=== PATIENT | female | born 1950 | race Caucasian/White ===

== ENCOUNTER 2017-04-05 17:38 | Emergency (ER) | payer OTHER, MEDICAID ==
[~2017-04-05 17:38] MED LIST: CIPRO500 MG PO; COLACE100 MG PO; FLA500 PO; LAC PO; NOR10T PO
[2017-04-05 21:12] VITALS: BP 112/48
== END 2017-04-05 21:08 | disposition home or self-care (01) ==
LOC: ED 17:38
DX: K59.00 Constipation, unspecified (principal); I10 Essential (primary) hypertension; Z88.0 Allergy status to penicillin
CPT/HCPCS: Q0092

== ENCOUNTER 2018-02-03 19:36 | Emergency (ER) | payer OTHER, MEDICAID ==
[~2018-02-03] VITALS: Ht 157.5 cm; Wt 79.4 kg
[2018-02-03 19:42] VITALS: Ht 157.5 cm; Wt 79.4 kg
[2018-02-03 20:47] LABS: BASOPHIL % 0.8 % (0-2); PLATELET COUNT 227 x10^3mcL (130-400); RED CELL DISTRIBUTION WIDTH 13.7 % (11.5-14.5)
[2018-02-03 20:55] LABS: CALCIUM 8.4 mg/dL (8.5-10.1); CARBON DIOXIDE 26.3 mmol/L (21-32); POTASSIUM SERUM 3.4 mmol/L (3.5-5.1)
[2018-02-03 21:00] LABS: ALBUMIN 3.5 g/dL (3.4-5.0); BILIRUBIN TOTAL 0.26 mg/dL (0.20-1.00); TOTAL PROTEIN, SERUM 7.1 g/dL (6.4-8.2)
[2018-02-03 21:11] LABS: FREE T4 0.84 ng/dL (0.76-1.46); FREE THYROXINE INDEX 2.5 ug/dL (1.4-4.5); T4(THYROXINE) 7.5 ug/dL (4.7-13.3)
[2018-02-03 21:21] LABS: T3 TOTAL 1.08 ng/mL
[2018-02-03 21:49] VITALS: BP 135/78
== END 2018-02-03 21:49 | disposition home or self-care (01) ==
LOC: ED 19:36
PROVIDERS: Specialist
DX: J20.9 Acute bronchitis, unspecified (principal); I10 Essential (primary) hypertension; E78.00 Pure hypercholesterolemia, unspecified; F41.9 Anxiety disorder, unspecified; E03.9 Hypothyroidism, unspecified; R63.0 Anorexia; Z88.0 Allergy status to penicillin
CPT/HCPCS: 36415; 83880; 84439; J7613; J7644

== ENCOUNTER 2018-05-08 19:39 | Emergency (ER) | payer OTHER, MEDICAID ==
[~2018-05-08] VITALS: Ht 157.5 cm; Wt 75.7 kg
[2018-05-08 19:47] VITALS: Ht 157.5 cm; Wt 75.7 kg
[2018-05-08 22:05] LABS: BASOPHIL % 0.3 % (0-2); PLATELET COUNT 189 x10^3mcL (130-400); RED CELL DISTRIBUTION WIDTH 12.9 % (11.5-14.5)
[2018-05-08 22:16] LABS: FREE THYROXINE INDEX 2.3 ug/dL (1.4-4.5)
[2018-05-08 22:22] LABS: CALCIUM 8.5 mg/dL (8.5-10.1); CARBON DIOXIDE 25.9 mmol/L (21-32); CREATININE SERUM 1.1 mg/dL (0.6-1.0); POTASSIUM SERUM 3.1 mmol/L (3.5-5.1)
[2018-05-08 22:27] LABS: ALBUMIN 3.7 g/dL (3.4-5.0); BILIRUBIN TOTAL 0.22 mg/dL (0.20-1.00); CHOLESTEROL/HDL RATIO 3.2; TOTAL PROTEIN, SERUM 6.9 g/dL (6.4-8.2)
[2018-05-08 22:30] LABS: T3 TOTAL 0.91 ng/mL
[2018-05-08 22:39] LABS: microscopic required? NO
[2018-05-08 22:44] LABS: UA SPECIFIC GRAVITY <=1.005 (1.005-1.035); urine erythrocyte NEGATIVE (NEGATIVE)
[2018-05-08 22:50] LABS: FREE T4 0.82 ng/dL (0.76-1.46)
[2018-05-09 00:07] VITALS: BP 113/58
== END 2018-05-09 00:07 | disposition home or self-care (01) ==
LOC: ED 19:39
PROVIDERS: Specialist
DX: F41.9 Anxiety disorder, unspecified (principal); R07.89 Other chest pain; F32.9 Major depressive disorder, single episode, unspecified; I10 Essential (primary) hypertension; E03.9 Hypothyroidism, unspecified; Z88.0 Allergy status to penicillin
CPT/HCPCS: 83880; 84439; J2060; J7030; Q0092